=== PATIENT | male | born 1955 | race Hispanic/Latino ===

== ENCOUNTER 2018-05-19 07:50 | Emergency (ER) | payer BC, OTHER ==
[~2018-05-19] VITALS: Ht 170.2 cm; Wt 102.1 kg
[~2018-05-19 07:50] MED LIST: ALLOPURINOL300 MG; AMLODIPINE BESYL5 MG; HCTZ; INDOMETHACIN75 MG; LISINOPRIL40 MG; NAPROXEN500 MG
[2018-05-19] MEDS ORDERED: METFORMIN HCL500 MG PO (08:03)
[2018-05-19] MEDS ORDERED: SIMVASTATIN20 MG PO (08:03)
[2018-05-19] MEDS ORDERED: KETOROLAC TROMETHAMINE 60 MG/2 ML VIAL IM ONE (08:30)
--- NOTE | 2018-05-19 09:04 | Diagnostic Imaging Report ---
Exam: Right knee 3 views History: Pain Comparison: None. Findings: No fracture or malalignment. Medial compartment predominant knee degenerative arthrosis. Large effusion. Impression: No acute osseous abnormality Knee osteoarthritis with large effusion. Signed by: Dr. Dusty Rivera M.D. on 05/19/2018 9:00 AM
[2018-05-19] MEDS ORDERED: ULTRAM50 MG PO (09:26)
[2018-05-19] MEDS ORDERED: HYDROCODONE/APAP 10MG-325MG TAB PO ONE (09:30)
[2018-05-19 09:35] VITALS: BP 147/94
[2018-05-19] MEDS ORDERED: HYDROMORPHONE 2MG/ML 2 MG/ML ML IM ONE (12:30)
== END 2018-05-19 09:50 | disposition home or self-care (01) ==
LOC: ER 07:50
DX: M25.561 Pain in right knee (principal); M17.11 Unilateral primary osteoarthritis, right knee; M25.461 Effusion, right knee
CPT/HCPCS: 36415; 73562; 82948; 99283; J1170; J1885

== ENCOUNTER 2018-05-30 15:55 | Outpatient (RCR) | payer BC ==
[~2018-05-30 15:55] MED LIST changes: +METFORMIN HCL500 MG PO; +SIMVASTATIN20 MG PO; +ULTRAM50 MG PO
== END 2018-06-16 ==
LOC: PT 15:55
PROVIDERS: ATTEND Orthopaedic Surgery
DX: M17.11 Unilateral primary osteoarthritis, right knee (principal); M62.81 Muscle weakness (generalized); R26.2 Difficulty in walking, not elsewhere classified